=== PATIENT | female | born 1975 | race American Indian/Alaskan Native ===

== ENCOUNTER 2016-06-16 08:08 | Emergency (ER) | payer SELFPAY ==
[2016-06-16 08:33] VITALS: BP 126/89
== END 2016-06-16 20:33 | disposition left against medical advice (07) ==
LOC: ED 08:08
DX: R10.30 Lower abdominal pain, unspecified (principal); Z53.21 Procedure and treatment not carried out due to patient leaving prior to being seen by health care provider

== ENCOUNTER 2016-08-04 09:34 | Emergency (ER) | payer OTHER ==
[2016-08-04 10:12] LABS: Basophils % (Auto) 0.4 % (0.0-1.8); Eosinophils % (Auto) 0.8 % (0.0-4.3); Hematocrit 38.7 % (30.3-42.9); Hemoglobin 12.8 gm/dl (10.1-14.3); Mean Corpuscular HGB Conc 33 % (30-34); Mean Corpuscular Hemoglobin 29 pg (28-32); Mean Corpuscular Volume 88 fl (79-97); Platelet Count 220 K/mm3 (140-440); Red Blood Count 4.38 M/mm3 (3.65-5.03); Red Cell Distribution Width 14.2 % (13.2-15.2); White Blood Count 12.6 K/mm3 (4.5-11.0)
[2016-08-04 10:30] LABS: Alanine Aminotransferase 8 units/L (7-56); Albumin/Globulin Ratio 1.2 %; Alkaline Phosphatase 88 units/L (35-129); Anion Gap 18 mmol/L; Blood Urea Nitrogen 7 mg/dL (7-17); Calcium 8.8 mg/dL (8.4-10.2); Carbon Dioxide 22 mmol/L (22-30); Chloride 100.8 mmol/L (98-107); Glucose 88 mg/dL (65-100); Lipase 20 units/L (13-60); Potassium 3.9 mmol/L (3.6-5.0); Sodium 137 mmol/L (137-145); Total Protein 7.3 g/dL (6.3-8.2)
[2016-08-04 10:54] LABS: Bilirubin,Urine NEG (Negative); Blood,Urine LG (Negative); Ketones,Urine NEG (Negative); Leukocyte Esterase,Urine NEG (Negative); Mucus,Urine 3+ /HPF; Nitrite,Urine NEG (Negative); Urobilinogen,Urine < 2.0 mg/dL (<2.0)
[2016-08-04 10:55] LABS: RBC,Urine > 182.0 /HPF (0.0-6.0)
[2016-08-04] MEDS ORDERED: ZOFRAN ODT PO ONE (18:05)
[2016-08-04] MEDS ORDERED: PERCOCET 5/325 PO ONE (18:05)
--- NOTE | 2016-08-04 19:40 | Ultrasound Report ---
FINAL REPORT EXAM: US TRANSVAGINAL HISTORY: pelvic pain COMPARISONS: None. FINDINGS: Transvaginal grayscale, color and spectral Doppler ultrasound evaluation of the pelvis Anteverted uterus measures 8.8 x 4.7 x 5.8 cm. Myometrium is within normal limits. Homogeneous endometrium is approximately 7 millimeters in thickness. Small volume of free fluid in the pelvis. The right ovary measures 4 x 2.4 x 2.8 cm demonstrates normal spectral Doppler waveforms. Adjacent to an apparently separate from the right ovary there is a ill-defined hypoechoic mass with small amount of internal flow on color Doppler and equivocal posterior acoustic characteristics measuring approximately 2.3 cm in greatest dimension. The left ovary demonstrates normal echotexture and normal spectral Doppler waveforms and measures 3.8 x 2 x 1.1 cm. IMPRESSION: Nonspecific extra ovarian right adnexal lesion. In the setting of a negative test, differential diagnosis includes gynecologic and non gynecologic etiologies. Consider endometrioma, given reported current menstruation. If there is concern for acute non gynecologic etiology, CT is recommended. Otherwise, short interval follow-up ultrasound is suggested.
--- NOTE | 2016-08-04 19:42 | Ultrasound Report ---
FINAL REPORT EXAM: US PELVIC COMPLETE HISTORY: pelvic pain COMPARISONS: None. FINDINGS: Transabdominal grayscale, color and spectral Doppler ultrasound evaluation of the pelvis Anteverted uterus measures 8.8 x 4.7 x 5.8 cm. Myometrium is within normal limits. Homogeneous endometrium is approximately 7 millimeters in thickness. Small volume of free fluid in the pelvis. The ovaries are not well visualized by transabdominal ultrasound. IMPRESSION: Unremarkable appearance of the uterus. Ovaries not well visualized by transabdominal scanning. Please see transvaginal ultrasound of the same date.
[2016-08-04 19:54] VITALS: BP 136/80
--- NOTE | 2016-08-04 20:09 | Emergency Department Report ---
Entered by EUGENE CARDOZA, acting as scribe for VITO BLANKENSHIP PA. ED Female HPI - General Chief complaint: Abdominal Pain Stated complaint: VAGINAL PRESSURE Time Seen by Provider: 08/04/16 17:30 Source: patient Mode of arrival: Ambulatory Limitations: No Limitations - History of Present Illness Initial comments: 40 year old female with a PMHx of chronic back pain, Colitis, depression, and seizures presents to the ED c/o of abdominal pain that began 2 days ago. Rates pain a 10/10 in severity and describes pain as pressure in quality. Associated symptoms include urgency, frequency, and low back pain, but she denies nausea, vomiting, fever, and chills. Notes that she hasn't had a menstrual period for 12 years due to being on Depo control. Reports last Depo shot was on 11/18. She states that she's had a menstrual period now since . LMP 2016. Complaint: other (abdominal pain) Onset/Timin -: days(s) Location: suprapubic Radiation: non-radiating Severity: moderate Severity scale (0 -10): 10 Quality: aching Consistency: constant Improves with: none Worsens with: none Are you Now?: No Last Menstrual Period: 08/03/16 EDC: 05/10/17 Associated Symptoms: denies other symptoms, abdominal pain, other (low back pain ). denies: vaginal discharge, nausea/vomiting, fever/chills, headaches, dysuria , rash, shortness of breath - Related Data Home Medications Medication Instructions Recorded Confirmed Last Taken Escitalopram Oxalate [Lexapro] 20 mg PO DAILY 01/24/16 01/24/16 05/25/16 Trazodone HCl [traZODone] 300 mg PO QHS 01/24/16 01/24/16 05/25/16 oxyCODONE 7.5 mg PO Q8H PRN 01/24/16 01/24/16 Unknown Gabapentin [Neurontin] 600 mg PO BID 05/26/16 05/26/16 Unknown Previous Rx's Medication Instructions Recorded Last Taken Type traMADol [Ultram 50 MG tab] 50 mg PO Q6HR PRN #14 tablet 05/26/16 Unknown Rx Naproxen [Naprosyn TAB] 500 mg PO BID PRN #16 tablet 08/04/16 Unknown Rx Allergies Allergy/AdvReac Type Severity Reaction Status Date / Time No Known Allergies Allergy Unverified 01/24/16 15:19 ED Review of Systems Comment: All other systems reviewed and negative Constitutional: denies: chills, fever Respiratory: denies: orthopnea, shortness of breath, SOB with exertion, SOB at rest, stridor Cardiovascular: denies: dyspnea on exertion, orthopnea Gastrointestinal: abdominal pain. denies: nausea, vomiting, diarrhea Genitourinary: urgency, frequency. denies: dysuria, discharge Musculoskeletal: back pain (minimal low back pain), other (right shoulder pain) Neurological: denies: headache ED Past Medical Hx - Past Medical History Previous Medical History?: Yes Hx Seizures: Yes (psuedo) Hx Psychiatric Treatment: (anxiety/depression) Additional medical history: chronic back pain, Colitis, Right shoulder pain/ strain - Surgical History Past Surgical History?: Yes Additional Surgical History: back - Social History Smoking Status: Current Every Day Smoker Substance Use Type: Alcohol, Non Opiate Pain, Prescribed - Medications Home Medications: Home Medications Medication Instructions Recorded Confirmed Last Taken Type Escitalopram Oxalate [Lexapro] 20 mg PO DAILY 01/24/16 01/24/16 05/25/16 History Trazodone HCl [traZODone] 300 mg PO QHS 01/24/16 01/24/16 05/25/16 History oxyCODONE 7.5 mg PO Q8H PRN 01/24/16 01/24/16 Unknown History Gabapentin [Neurontin] 600 mg PO BID 05/26/16 05/26/16 Unknown History traMADol [Ultram 50 MG tab] 50 mg PO Q6HR PRN #14 tablet 05/26/16 Unknown Rx Naproxen [Naprosyn TAB] 500 mg PO BID PRN #16 tablet 08/04/16 Unknown Rx ED Physical Exam - General Limitations: No Limitations General appearance: alert, in no apparent distress - Head Head exam: Present: atraumatic, normocephalic - Eye Eye exam: Present: normal appearance, EOMI Pupils: Present: normal accommodation - ENT ENT exam: Present: normal exam, mucous membranes moist - Neck Neck exam: Present: normal inspection, full ROM. Absent: tenderness, lymphadenopathy - Respiratory Respiratory exam: Present: normal lung sounds bilaterally. Absent: respiratory distress, wheezes, rales, rhonchi - Cardiovascular Cardiovascular Exam: Present: regular rate, normal rhythm. Absent: systolic murmur, diastolic murmur, rubs, gallop - GI/Abdominal GI/Abdominal exam: Present: soft, normal bowel sounds. Absent: distended, tenderness, guarding, rebound, rigid - Extremities Exam Extremities exam: Present: normal inspection, full ROM - Back Exam Back exam: Present: normal inspection, full ROM. Absent: CVA tenderness (R), CVA tenderness (L) - Neurological Exam Neurological exam: Present: alert, oriented X3 - Psychiatric Psychiatric exam: Present: normal affect, normal mood - Skin Skin exam: Present: warm, dry, intact. Absent: rash ED Course Vital Signs 08/04/16 08/04/16 09:39 19:54 Temperature 97.8 F Pulse Rate 92 H 91 H Respiratory 20 20 Rate Blood Pressure 137/81 Blood Pressure 136/80 [Left] O2 Sat by Pulse 100 97 Oximetry - Reevaluation(s) Reevaluation #1: 08/04/16 18:49 Patient received Percocet 5/325 2 tablets in emergency room and Zofran 4 mg ODT for abdominal pain.) Patient awaiting reports of ultrasound. Reevaluation #2: 08/04/16 19:57 Patient stable. Pains controlled. Abdominal exam is normal. ED Medical Decision Making - Lab Data Result diagrams: 08/04/16 09:54 08/04/16 09:54 Lab Results 08/04/16 08/04/16 08/04/16 Range/Units 09:54 09:54 10:14 WBC 12.6 H (4.5-11.0) K/mm3 RBC 4.38 (3.65-5.03) M/mm3 Hgb 12.8 (10.1-14.3) gm/dl Hct 38.7 (30.3-42.9) % MCV 88 (79-97) fl MCH 29 (28-32) pg MCHC 33 (30-34) % RDW 14.2 (13.2-15.2) % Plt Count 220 (140-440) K/mm3 Lymph % (Auto) 26.6 (13.4-35.0) % [place] % (Auto) 6.4 (0.0-7.3) % Eos % (Auto) 0.8 (0.0-4.3) % Baso % (Auto) 0.4 (0.0-1.8) % Lymph # 3.4 (1.2-5.4) K/mm3 [place] # 0.8 (0.0-0.8) K/mm3 Eos # 0.1 (0.0-0.4) K/mm3 Baso # 0.1 (0.0-0.1) K/mm3 Seg Neutrophils % 65.8 (40.0-70.0) % Seg Neutrophils # 8.3 H (1.8-7.7) K/mm3 Sodium 137 (137-145) mmol/L Potassium 3.9 (3.6-5.0) mmol/L Chloride 100.8 (98-107) mmol/L Carbon Dioxide 22 (22-30) mmol/L Anion Gap 18 mmol/L BUN 7 (7-17) mg/dL Creatinine 0.4 L (0.7-1.2) mg/dL Estimated GFR > 60 ml/min BUN/Creatinine Ratio 17.50 % Glucose 88 (65-100) mg/dL Calcium 8.8 (8.4-10.2) mg/dL Total Bilirubin 0.20 (0.1-1.2) mg/dL AST 10 (5-40) units/L ALT 8 (7-56) units/L Alkaline Phosphatase 88 (35-129) units/L Total Protein 7.3 (6.3-8.2) g/dL Albumin 4.0 (3.9-5) g/dL Albumin/Globulin Ratio 1.2 % Lipase 20 (13-60) units/L Urine Color Red (Yellow) Urine Turbidity Cloudy (Clear) Urine pH 5.0 (5.0-7.0) Ur Specific [place] 1.025 (1.003-1.030) Urine Protein 100 mg/dl (Negative) mg/dL Urine Glucose (UA) Neg (Negative) mg/dL Urine Ketones Neg (Negative) mg/dL Urine Blood Lg (Negative) Urine Nitrite Neg (Negative) Urine Bilirubin Neg (Negative) Urine Urobilinogen < 2.0 (<2.0) mg/dL Ur Leukocyte Esterase Neg (Negative) Urine WBC (Auto) 2.0 (0.0-6.0) /HPF Urine RBC (Auto) > 182.0 (0.0-6.0) /HPF U Epithel Cells (Auto) 15.0 H (0-13.0) /HPF Urine Mucus 3+ /HPF Urine HCG, Qual Negative (Negative) Patient is currently menstruating - Radiology Data Radiology results: report reviewed Ultrasound pelvic revealed nonspecific extra ovarian right adnexal region. In the setting of a negative test, differential diagnosis includes gynecological and non-gynecologic etiologies. Consider endometrioma, given reported current menstruation, if she is concerned for acute non-gynecological etiology, CT is recommended. Also recommend follow-up ultrasound.. - Medical Decision Making ED course: Patient here complaining of lower abdominal pain with diagnosis of left ovarian lesion possibility for endometrioma considering that she is currently on her period. Follow-up recommended with [facility]. I explained results of ultrasound results to patient and she voices understanding. She does not have a primary care or [facility] so I discussed with her that she will need to call [facility] on Saturday to schedule an appointment. Patient pain is controlled. Tolerating oral liquids without any problem. Patient discharged home with prescription for naproxen. ED Disposition Clinical Impression: Pelvic pain, Lesion of ovary Disposition: DISCHARGED TO HOME OR SELFCARE Is pt being admited?: No Does the pt Need Aspirin: No Condition: Stable Instructions: Abdominal Pain (ED), Ovarian Cyst (ED) Additional Instructions: You have a lesion on your right ovary that he'll need to have close follow-up ultrasound Outpatient [facility]. Please follow-up with [facility] in 2 days. Call to schedule an appointment. Follow up with [facility] that was recommended If you have recurrent abdominal pain, patient return to the emergency room [facility]. Prescriptions: Naproxen [Naprosyn TAB] 500 mg PO BID PRN #16 tablet PRN Reason: Pain Referrals: [facility] [Outside] - 08/06/16 EDMUND VELARDE MD [Staff Physician] - 08/06/16 Forms: Accompanied Note, Work/School Release Form(ED) This documentation as recorded by the SONY pang JASMINE,accurately reflects the service I personally performed and the decisions made by ,VITO BLANKENSHIP PA.
== END 2016-08-04 20:23 | disposition home or self-care (01) ==
LOC: ED 09:34
DX: R10.2 Pelvic and perineal pain (principal); N83.9 Noninflammatory disorder of ovary, fallopian tube and broad ligament, unspecified; F41.9 Anxiety disorder, unspecified; F32.9 Major depressive disorder, single episode, unspecified; G89.29 Other chronic pain; F17.200 Nicotine dependence, unspecified, uncomplicated
CPT/HCPCS: 36415; 76830; 76856; 80053; 81001; 81025; 83690; 85025; Q0162

== ENCOUNTER 2016-11-21 21:35 | Emergency (ER) | payer SELFPAY ==
--- NOTE | 2016-11-21 22:57 | XRay Report ---
FINAL REPORT EXAM: XR HAND 3+V LT HISTORY: Pain/swelling to left thumb, send for report TECHNIQUE: 3 views of left hand. PRIORS: None. FINDINGS: Joint spaces maintained. No apparent fracture or dislocation. Soft tissues grossly unremarkable. IMPRESSION: 1. No acute osseous abnormality.
[2016-11-22 03:28] VITALS: BP 121/67
--- NOTE | 2016-11-22 03:28 | Emergency Department Report ---
HPI - General Chief Complaint: Extremity Problem,Nontraumatic Time Seen by Provider: 11/22/16 01:52 - HPI HPI: 41-year-old female presents to ED complaining of left thumb pain and swelling for the past 2 months. Patient states is getting worse and she was to have it checked. Patient states pain is localized to the thumb at the proximal joint of the thumb patient denies any trauma or fall or injury to the hand with home. ED Past Medical Hx - Past Medical History Previous Medical History?: Yes Hx Seizures: Yes (psuedo) Hx Psychiatric Treatment: (anxiety/depression) Additional medical history: chronic back pain, Colitis, Right shoulder pain/ strain - Surgical History Past Surgical History?: Yes Additional Surgical History: back - Social History Smoking Status: Current Every Day Smoker Substance Use Type: Alcohol - Medications Home Medications: Home Medications Medication Instructions Recorded Confirmed Last Taken Type Escitalopram Oxalate [Lexapro] 20 mg PO DAILY 01/24/16 01/24/16 05/25/16 History Trazodone HCl [traZODone] 300 mg PO QHS 01/24/16 01/24/16 05/25/16 History oxyCODONE 7.5 mg PO Q8H PRN 01/24/16 01/24/16 Unknown History Gabapentin [Neurontin] 600 mg PO BID 05/26/16 05/26/16 Unknown History traMADol [Ultram 50 MG tab] 50 mg PO Q6HR PRN #14 tablet 05/26/16 Unknown Rx Cyclobenzaprine [Flexeril] 10 mg PO QHS PRN #24 tablet 11/22/16 Unknown Rx Giselle Lacey (Nf) 50 mg PO BID #30 tablet. 11/22/16 Unknown Rx Naproxen [Naprosyn TAB] 500 mg PO BID PRN #16 tablet 11/22/16 Unknown Rx ED Review of Systems ROS: Stated complaint: LEFT THUMB SWOLLEN/PAIN Other details as noted in HPI Constitutional: denies: chills, fever Eyes: denies: eye pain, eye discharge, vision change ENT: denies: ear pain, throat pain Respiratory: denies: cough, shortness of breath, wheezing Cardiovascular: denies: chest pain, palpitations Endocrine: no symptoms reported Gastrointestinal: denies: abdominal pain, nausea, diarrhea Genitourinary: denies: urgency, dysuria, discharge Musculoskeletal: arthralgia. denies: back pain, joint swelling Skin: denies: rash, lesions Neurological: denies: headache, weakness, paresthesias Psychiatric: denies: anxiety, depression Hematological/Lymphatic: denies: easy bleeding, easy bruising Physical Exam - Physical Exam Vital Signs: Vital Signs 11/21/16 21:40 Temperature 99.2 F Pulse Rate 92 H Respiratory 18 Rate Blood Pressure 114/82 [Right] O2 Sat by Pulse 100 Oximetry Physical Exam: GENERAL: Alert and oriented x3, no apparent distress, Normal Gait, atraumatic. LUNGS: Symetrical with respiration, No wheezing, no rales or crackles, CTAB. HEART: S1, S2 present, regular rate and rhythm without murmur, no rubs, no gallops. Non tender to palpation EXTREMITIES/MUSCULOSKELETAL: No cyanosis, clubbing, rash, lesions or edema. Full ROM bilaterally. UE/LE Pulses 2+ bilaterally. Left thumb intact, joints intact.Swelling and erythema. Tender to palpation along the PIP joint. finklestein test positive SKIN: Warm and dry, No lesions, No ulceration or induration present. ED Course Vital Signs 11/21/16 21:40 Temperature 99.2 F Pulse Rate 92 H Respiratory 18 Rate Blood Pressure 114/82 [Right] O2 Sat by Pulse 100 Oximetry ED Medical Decision Making - Medical Decision Making 41-year-old female presents with a de Quervain's tenosynovitis LEFT thumb ED course: Patient received Solu-Medrol inED. discuss symptoms may resolve on their own or may need to be further assessed by orthopedic Discussed pain medication and reduce in using hands. Discussed patient home on thumb splint and to keep on one not in use Vital signs are fine patient is in no acute distress Patient understands all instructions given and states will follow up Critical care attestation.: If time is entered above; I have spent that time in minutes in the direct care of this critically ill patient, excluding procedure time. ED Disposition Clinical Impression: De Quervain's tenosynovitis, left Arthralgia Qualifiers: Joint pain location: hand Laterality: left Qualified Code(s): M25.542 - Pain in joints of left hand Disposition: -01 TO HOME OR SELFCARE Is pt being admited?: No Does the pt Need Aspirin: No Condition: Stable Instructions: Arthralgia (ED), Tenosynovitis (ED) Prescriptions: Cyclobenzaprine [Flexeril] 10 mg PO QHS PRN #24 tablet PRN Reason: Muscle Spasm Diclofenac Dr (Nf) 50 mg PO BID #30 tablet. Naproxen [Naprosyn TAB] 500 mg PO BID PRN #16 tablet PRN Reason: Pain Referrals: PRIMARY CARE, [Primary Care Provider] - 3-5 Days JAYASHREE BLANCO MD [Staff Physician] - 3-5 Days LUCAS PORTILLO MD [Staff Physician] - 3-5 Days [facility] [Outside] - 3-5 Days [facility] [Outside] - 3-5 Days Forms: Work/School Release Form(ED) Time of Disposition: 03:45
== END 2016-11-22 04:02 | disposition home or self-care (01) ==
LOC: ED 21:35
DX: M65.4 Radial styloid tenosynovitis [de Quervain] (principal); M25.542 Pain in joints of left hand
CPT/HCPCS: 29125; 73130; 96372; 99283; J2930